=== PATIENT | male | born 1955 | race Caucasian/White ===

== ENCOUNTER 2018-03-14 12:36 | Observation (INO) | payer OTHER ==
[~2018-03-14] VITALS: Ht 167.6 cm; Wt 84.4 kg
[~2018-03-14 12:36] MED LIST: MOBIC15 M1 PO; SKELAXIN800 M1 PO
--- NOTE | 2018-03-14 12:41 | ED GENERAL ADULT ---
History of Present Illness General Chief Complaint: Neuro Symptoms/ Deficit Stated Complaint: BIBA L SIDED DEFICIT Source: patient Exam Limitations: no limitations Vital Signs & Intake/Output Vital Signs & Intake/Output Vital Signs Date Time Temp Pulse Resp B/P B/P Pulse O2 O2 Flow FiO2 Mean Ox Delivery Rate 03/14 1253 92 20 146/87 03/14 1236 Room Air Allergies Coded Allergies: No Known Allergies (03/14/18) Reconcile Medications Aspirin (Aspirin*) 81 MG TAB.CHEW 1 TAB PO DAILY HEART HEALTH (Reported) Carbamazepine (Tegretol) 200 MG TABLET 1 TAB PO BID SEIZURES (Reported) Eszopiclone (Lunesta) 3 MG TABLET 1 TAB PO QPM SLEEP HELP (Reported) Hydrocodone/Acetaminophen (Hydrocodon-Acetaminophn 10-300) 10 MG-300 MG TABLET 1 TAB PO Q6 PAIN (Reported) Lisinopril 20 MG TABLET 1 TAB PO DAILY HEART (Reported) Lorazepam (Ativan) 0.5 MG TABLET 1 TAB PO BID ANXIETY (Reported) Metformin HCl 500 MG TABLET 1 TAB PO BID DIABETES (Reported) Metoprolol Tartrate (Lopressor) 50 MG TABLET 0.5 TAB PO BID HEART (Reported) Omeprazole 20 MG CAPSULE.DR 1 CAP PO DAILY GI (Reported) Rosuvastatin Calcium (Crestor) 40 MG TABLET 1 TAB PO DAILY CHOLESTEROL ( Reported) Ticagrelor (Brilinta) 60 MG TABLET 1 TAB PO BID BLOOD THINNER (Reported) Triage Nurses Notes Reviewed? yes HPI: Patient is a 63-year-old male with past medical history of seizure disorder on carbamazepine without seizure episodes for the past multiple years who presents today by ambulance as a stroke alert. His noted loss of consciousness with seizure activity at 12 noon today and called 911. At the time of EMS arrival the patient was still having some residual seizure activity, which was self- limited. After it broke, he had left-sided hemiparesis. At the time of ED arrival the patient had improved significantly, with some continued expressive aphasia and confusion. The triage nurse alerted me to the patient's arrival simultaneous with him being brought to the CT scanner. I evaluated him in the scanner just prior to his exam and agreed with the plan for stroke alert, so it was called at that time. I received a call back from Dr. Roger who stated that he would come to the bedside immediately. Patient is protecting his airway well. Past History Travel History Traveled to [place] past 21 day No Medical History Any Pertinent Medical History? see below for history Cardiovascular: myocardial infarction, STENT Gastrointestinal: INGUINAL HERNIA Renal: NONE Musculoskeletal: "MULTIPLE HERNIATED DISKS Psychiatric: NONE Endocrine: diabetes Surgical History Surgical History: non-contributory Psychosocial History What is your primary language Faroese Family History Hx Contributory? Yes Review of Systems Review of Systems Constitutional: Reports: see HPI. Comments Other than the features mentioned in history of present illness above, a detailed review of systems was not possible secondary to the patient's confusion and expressive aphasia Physical Exam Physical Exam General Appearance: well developed/nourished, lethargic Comments: HEENT: Inspection of the head reveals a normocephalic cranium with no signs of trauma. Ophtho: Extraocular muscles are intact and pupils are equal and reactive to light bilaterally with no afferent pupillary defect. The sclera are noninjected , and there is no obvious discharge. Neck: The trachea is midline, there is no obvious asymmetry or mass over the thyroid, and there is no wincing on palpation of the midline cervical spine. Respiratory: The lungs are clear and equal to auscultation bilaterally without wheezes, rales, or rhonchi. The patient exhibits no signs of labored breathing. Cardiac: Regular rhythm and non-tachycardic without appreciable murmurs on auscultation. No obvious JVD. GI: Examination of the abdomen reveals no significant wincing on deep palpation. : Deferred Neuro: Focused neurologic examination was attempted, but secondary to the patient's altered mentation and expressive aphasia, it was extremely limited. Features that were obtainable included equal pupils and a slightly decreased left-sided block operator strength as compared to the right. Behavioral: Altered, somewhat confused. Dermatologic: Dermatologic examination reveals no diffuse rashes or exanthems, no petechiae, no ecchymoses, and no other signs of erythema or infection. Core Measures ACS in differential dx? No CVA/TIA Diagnosis: Yes Sepsis Present: No Sepsis Focused Exam Completed? No Progress Differential Diagnoses I considered the following diagnoses in my evaluation of the patient: CVA, TIA, seizure, cervical artery dissection, toxicologic cause of seizure, medication noncompliance, illness causing lowering of seizure threshold. Plan of Care: Orders Procedure Date/time Status Add-on Test (ER Only) 03/14 1259 Active TEGRETOL LEVEL 03/14 1252 Complete PARTIAL THROMBOPLASTIN TIME 03/14 1240 Complete PROTHROMBIN TIME 03/14 1240 Complete COMPREHENSIVE METABOLIC PANEL 03/14 124 Complete CBC WITHOUT DIFFERENTIAL 03/14 124 Complete EKG 03/14 1240 Active Laboratory Tests 03/14/18 1252: Anion Gap 18 H, Estimated GFR > 60, BUN/Creatinine Ratio 11.0, Glucose 97, Calcium 9.1, Total Bilirubin 0.2, AST 19, ALT 14 L, Alkaline Phosphatase 96, Total Protein 7.4, Albumin 4.3, Globulin 3.1, Albumin/Globulin Ratio 1.4, PT 10.6, INR 0.97, APTT 29, CBC w Diff NO MAN DIFF REQ, RBC 5.60, MCV 80.8, MCH 26.6 L, MCHC 33.0, RDW 17.5 H, MPV 6.4 L, Gran % 51.6, Lymphocytes % 37.6, Monocytes % 6.8, Eosinophils % 3.5, Basophils % 0.5, Absolute Granulocytes 4.0, Absolute Lymphocytes 2.9, Absolute Monocytes 0.5, Absolute Eosinophils 0.3, Absolute Basophils 0, Carbamazepine 9.1 Initial ED EKG: normal axis, normal intervals, NSR, RBBB, no ST T wave changes Comments: Patient presented as a stroke alert but rapidly returned to his neurologic baseline. Dr. Roger from neurology came to the bedside rapidly and by that time his neurologic examination was reassuring. CT was negative. The decision was made in consultation with Dr. Roger to hospitalize the patient for a possible TIA versus breakthrough seizure. Carbamazepine level sent. Departure Departure Time of Disposition: 1427 Disposition: STILL A PATIENT Condition: Stable Clinical Impression Primary Impression: Transient ischemic attack Referrals: Carrington WILEY,Biju Prakash (PCP/Family) Departure Forms: Customer Survey General Discharge Information Observation Note Spoke With: Giovani WILEY,[place] Physician Advisor Notified: LUPIS GONSALEZ DO Place Patient In: Non-ED OBS Care Area Rationale for Observation: My rational for observation is as follows: the patient had a significant neurologic deficit today which will require detailed monitoring, possibly MRI, frequent neurologic checks, repeat laboratory studies, and neurology consultation. I feel that if his syndrome continues to be reassuring and no symptoms return, it is likely that he will be deemed stable for discharge tomorrow and thus I feel that observation is appropriate over hospitalization. Critical Care Note Critical Care Note Critical Care Time: non-applicable
--- NOTE | 2018-03-14 12:58 | CT SCAN REPORT ---
EXAMINATION: CT HEAD WITHOUT CONTRAST CLINICAL INFORMATION: Stroke alert. Left-sided deficit. Onset 12pm today. COMPARISON: None TECHNIQUE: Contiguous axial imaging was performed from the skull base to vertex without intravenous administration of contrast. DLP: 617 mGy-cm FINDINGS: There is no evidence of acute intracranial hemorrhage or territorial infarction. No abnormal mass effect or midline shift is seen. Estevez to white matter differentiation is well preserved. No extra-axial fluid collections are identified. The ventricles are normal in size. Minor hypoattenuation in the periventricular white matter adjacent to the frontal horns, potentially on the basis of chronic microangiopathy. No acute osseous abnormality. There is moderate mucosal thickening in the ethmoid air cells bilaterally, and mild mucosal thickening in the anterior sphenoid air cells. There is partially visualized mucosal thickening along with sclerosis and thickening of the maxillary sinus galvin. There are scattered areas of nodularity within the nasal cavity suggesting small polyps which can be correlated with direct inspection. The visualized nasopharynx, mastoid air cells and middle ear cavities are clear. The imaged orbits are notable for bilateral ocular lens extractions. No acute soft tissue abnormalities are visualized. IMPRESSION: No acute intracranial pathology. Scattered inflammatory disease within the paranasal sinuses, partially visualized. Small nodularities within the nasal cavity suggesting polyps, which can be correlated with direct inspection. Our electrical accessories assembler is contacting the referring provider to directly convey these results per stroke protocol.
[2018-03-14 13:01] LABS: ABSOLUTE BASOPHIL COUNT 0 /CUMM (0.0-0.2); ABSOLUTE EOSINOPHIL COUNT 0.3 /CUMM (0.0-0.7); ABSOLUTE LYMPH COUNT 2.9 /CUMM (1.2-3.4); ABSOLUTE MONOCYTE COUNT 0.5 /CUMM (0.10-0.60); BASOPHIL % 0.5 % (0.0-2.0); EOSINOPHIL % 3.5 % (0-5); GRANULOCYTE % 51.6 % (42.2-75.2); HEMATOCRIT 45.2 % (42-52); MEAN CORPUSCULAR HGB 26.6 PG (27.0-31.0); MEAN CORPUSCULAR VOLUME 80.8 FL (80.0-94.0); MEAN PLATELET VOLUME 6.4 FL (7.4-10.4); PLATELET COUNT 254 /CUMM (130-400); RBC DISTRIBUTION WIDTH 17.5 % (11.5-14.5)
[2018-03-14 13:12] LABS: PTT 29 SEC (25-37)
[2018-03-14] MEDS ORDERED: ASPIRIN81 M4 PO (13:15)
[2018-03-14] MEDS ORDERED: CRESTOR40 M2 PO (13:15)
[2018-03-14] MEDS ORDERED: TEGRETOL200 M1 PO (13:15)
[2018-03-14] MEDS ORDERED: LISINOPRIL20 M1 PO (13:15)
[2018-03-14] MEDS ORDERED: METFORMIN HCL500 M3 PO (13:15)
[2018-03-14] MEDS ORDERED: ATIVAN0.5 M1 PO (13:16)
[2018-03-14] MEDS ORDERED: LOPRESSOR50 M1 PO (13:16)
[2018-03-14] MEDS ORDERED: HYDROCODON-ACE1 EAC4 PO (13:17)
[2018-03-14] MEDS ORDERED: BRILINTA60 MG PO (13:17)
[2018-03-14] MEDS ORDERED: LUNESTA3 M1 PO (13:18)
[2018-03-14] MEDS ORDERED: OMEPRAZOLE20 M2 PO (13:18)
[2018-03-14 13:24] LABS: WHITE BLOOD CELL COUNT 7.7 /CUMM (4.8-10.8)
--- NOTE | 2018-03-14 13:24 | Cons- Neurology ---
General Information and HPI Consulting Request Date of Consult: 03/14/18 Requested By: Dr. Garcia--ED History of Present Illness: 62-year-old male presents to the emergency department with a witnessed seizure. The patient has a history of coronary artery disease and a remote history of seizure, specifics quite unclear, last seizure likely occurring greater than 25 years ago. However, he has been maintained over time on carbamazepine 200 mg twice daily which she takes faithfully. Earlier this afternoon, in the presence of his son, he became acutely confused with some type of visual disturbance after which he had a generalized convulsion with shaking and stiffening of the extremities bilaterally. He was thereafter noted by emergency services to have a flaccid hemiparesis and aphasia. A stroke alert was called and the patient was rushed to CAT scan. The time he returned to the emergency department, his deficit had largely resolved. Due to his rapid improvement, TPA was not administered. There have been no recent fever, chills, rash or intercurrent medical condition. He currently has no essential complaints other than some fatigue. CAT scan of the brain on admission showed no acute abnormalities. No evidence of a chronic or focal scar. Allergies/Medications Allergies: Coded Allergies: No Known Allergies (03/14/18) Home Med List: Meloxicam (Mobic) 15 MG TABLET 1 TAB PO DAILY PRN PAIN Metaxalone (Skelaxin) 800 MG TABLET 1 TAB PO TID MUSCLE RELAXOR Review of Systems Review of Systems: Notable for some fatigue and chronic low back pain. There is been no recent fever, chills, rash, diplopia, dysphagia, vertigo, vomiting, gait ataxia, joint inflammation or abnormal bleeding Past History Travel History Traveled to [place] past 21 day No Medical History Cardiovascular: hyperlipidemia, myocardial infarction, STENT Gastrointestinal: INGUINAL HERNIA Renal: NONE Musculoskeletal: "MULTIPLE HERNIATED DISKS Psychiatric: NONE Endocrine: diabetes Surgical History Surgical History: non-contributory Psychosocial History Smoking Status: Current Everyday Smoker Exam & Diagnostic Data Vital Signs and I&O Vital Signs Date Time Temp Pulse Resp B/P B/P Pulse O2 O2 Flow FiO2 Mean Ox Delivery Rate 03/14 1253 92 20 146/87 Intake & Output 03/14 1600 03/14 0800 03/14 0000 Intake Total Output Total Balance Patient 180 lb Weight Weight Reported by Patient Measurement Method Pleasant middle-aged male in no acute distress. The head was normocephalic and atraumatic. He was awake, alert and cooperative. Speech was fluent. There was no anomia. He was able to repeat a simple sentence. Pupils were equal. Extraocular movements were full. There was no nystagmus. There was no facial weakness. Hearing was grossly normal. Tongue was midline. Motor examination showed no drift of the upper extremities. There was no focal or lateralizing weakness. Deep tendon reflexes are symmetric. Plantar responses were flexor. There was no ataxia on [id number] testing. Joint position sense was intact. The gait was untested. Assessment/Plan Assessment: The patient presents with a witnessed generalized convulsion associated with a transient neurological deficit, rapidly resolved. Although this may represent a breakthrough seizure or recrudescence of a prior seizure disorder, one would wish to rule out a seizure and transient neurological deficit secondary to an unrelated vascular event. An embolic TIA could present in this fashion. Recommendations: The patient should be admitted for observation. We will recommend the following. #1 carbamazepine level #2 carotid ultrasound #3 echocardiogram #4 EEG #5 Continuation of a statin and aspirin #6 lorazepam when necessary for recurrent seizure. We will follow with medical team. Consult Acknowledgment - Thank you for your consult request.
[2018-03-14 13:25] LABS: PT 10.6 SEC (9.4-12.5)
--- NOTE | 2018-03-14 14:51 | History & Physical ---
General Information and HPI Allergies/Medications Allergies: Coded Allergies: No Known Allergies (03/14/18) Home Med list Aspirin (Aspirin*) 81 MG TAB.CHEW 1 TAB PO DAILY HEART HEALTH (Reported) Carbamazepine (Tegretol) 200 MG TABLET 1 TAB PO BID SEIZURES (Reported) Eszopiclone (Lunesta) 3 MG TABLET 1 TAB PO QPM SLEEP HELP (Reported) Hydrocodone/Acetaminophen (Hydrocodon-Acetaminophn 10-300) 10 MG-300 MG TABLET 1 TAB PO Q6 PAIN (Reported) Lisinopril 20 MG TABLET 1 TAB PO DAILY HEART (Reported) Lorazepam (Ativan) 0.5 MG TABLET 1 TAB PO BID ANXIETY (Reported) Metformin HCl 500 MG TABLET 1 TAB PO BID DIABETES (Reported) Metoprolol Tartrate (Lopressor) 50 MG TABLET 0.5 TAB PO BID HEART (Reported) Omeprazole 20 MG CAPSULE.DR 1 CAP PO DAILY GI (Reported) Rosuvastatin Calcium (Crestor) 40 MG TABLET 1 TAB PO DAILY CHOLESTEROL ( Reported) Ticagrelor (Brilinta) 60 MG TABLET 1 TAB PO BID BLOOD THINNER (Reported) Past History Travel History Traveled to [place] past 21 day No Medical History Cardiovascular: hyperlipidemia, myocardial infarction, STENT Gastrointestinal: INGUINAL HERNIA Renal: NONE Musculoskeletal: "MULTIPLE HERNIATED DISKS Psychiatric: NONE Endocrine: diabetes Surgical History Surgical History: non-contributory Past Family/Social History Psychosocial History Smoking Status: Current Everyday Smoker Core Measures/Misc (03/27) Cerebrovascular Accident CVA/TIA Diagnosis: Yes Sepsis (View protocol) If YES complete Sepsis Event Note If YES complete Sepsis Event Note
--- NOTE | 2018-03-14 15:30 | History & Physical ---
General Information and HPI MD Statement: I have seen and personally examined SIMBA BRENNAN and documented this H&P. The patient is a 63 year old M who presented with a patient stated chief complaint of []. Allergies/Medications Allergies: Coded Allergies: No Known Allergies (03/14/18) Home Med list Aspirin (Aspirin*) 81 MG TAB.CHEW 1 TAB PO DAILY HEART HEALTH (Reported) Carbamazepine (Tegretol) 200 MG TABLET 1 TAB PO BID SEIZURES (Reported) Eszopiclone (Lunesta) 3 MG TABLET 1 TAB PO QPM SLEEP HELP (Reported) Hydrocodone/Acetaminophen (Hydrocodon-Acetaminophn 10-300) 10 MG-300 MG TABLET 1 TAB PO Q6 PAIN (Reported) Lisinopril 20 MG TABLET 1 TAB PO DAILY HEART (Reported) Lorazepam (Ativan) 0.5 MG TABLET 1 TAB PO BID ANXIETY (Reported) Metformin HCl 500 MG TABLET 1 TAB PO BID DIABETES (Reported) Metoprolol Tartrate (Lopressor) 50 MG TABLET 0.5 TAB PO BID HEART (Reported) Omeprazole 20 MG CAPSULE.DR 1 CAP PO DAILY GI (Reported) Rosuvastatin Calcium (Crestor) 40 MG TABLET 1 TAB PO DAILY CHOLESTEROL ( Reported) Ticagrelor (Brilinta) 60 MG TABLET 1 TAB PO BID BLOOD THINNER (Reported) Past History Travel History Traveled to [place] past 21 day No Medical History Cardiovascular: hyperlipidemia, myocardial infarction, STENT Gastrointestinal: INGUINAL HERNIA Renal: NONE Musculoskeletal: "MULTIPLE HERNIATED DISKS Psychiatric: NONE Endocrine: diabetes Surgical History Surgical History: non-contributory Past Family/Social History Psychosocial History Smoking Status: Current Everyday Smoker Core Measures/Misc (03/27) Cerebrovascular Accident CVA/TIA Diagnosis: Yes Sepsis (View protocol) If YES complete Sepsis Event Note If YES complete Sepsis Event Note
--- NOTE | 2018-03-14 16:13 | History & Physical ---
Charito Nobles 03/14/18 1612: General Information and HPI History of Present Illness: Tucker Estes is a 63-year-old gentleman with a past medical history of chronic back pain, coronary artery disease status post stent placed 2 years ago, hypertension, hyperlipidemia, seizure, GERD who presented to the ED due to one episode of witnessed seizures at home by his son. Patient states he does not remember the event. Patient states he was sitting on the couch and started to visualize "different colors" and then from there has no recollection of the event. Patient's son was present during the seizure activity and states his father began to move his head side to side rapidly and his extremities bilateral became stiff. Patient did not have any reported falls. Patient states he felt possibly dehydrated today due to the high temperatures recently. Patient otherwise denied any urinary incontinence, dizziness, lightheadedness, chest pain, palpitations, headache, fevers, chills, and fatigue. Patient denies illicit drug usage. Patient states he smokes 1/2 ppd for more than [address] Shultz (PCP). Patient [facility] with [facility]. Patient states he incidentally that he takes medication for sleep, however he has tried Ambien prior but states it did not have the intended effect and did not benefit him for sleep. Allergies/Medications Allergies: Coded Allergies: No Known Allergies (03/14/18) Home Med list Aspirin (Aspirin*) 81 MG TAB.CHEW 1 TAB PO DAILY HEART HEALTH (Reported) Carbamazepine (Tegretol) 200 MG TABLET 1 TAB PO BID SEIZURES (Reported) Eszopiclone (Lunesta) 3 MG TABLET 1 TAB PO QPM SLEEP HELP (Reported) Hydrocodone/Acetaminophen (Hydrocodon-Acetaminophn 10-300) 10 MG-300 MG TABLET 1 TAB PO Q6 PAIN (Reported) Lisinopril 20 MG TABLET 1 TAB PO DAILY HEART (Reported) Lorazepam (Ativan) 0.5 MG TABLET 1 TAB PO BID ANXIETY (Reported) Metformin HCl 500 MG TABLET 1 TAB PO BID DIABETES (Reported) Metoprolol Tartrate (Lopressor) 50 MG TABLET 0.5 TAB PO BID HEART (Reported) Omeprazole 20 MG CAPSULE.DR 1 CAP PO DAILY GI (Reported) Rosuvastatin Calcium (Crestor) 40 MG TABLET 1 TAB PO DAILY CHOLESTEROL ( Reported) Ticagrelor (Brilinta) 60 MG TABLET 1 TAB PO BID BLOOD THINNER (Reported) Past History Medical History Cardiovascular: hyperlipidemia, myocardial infarction, STENT Gastrointestinal: INGUINAL HERNIA Renal: NONE Musculoskeletal: "MULTIPLE HERNIATED DISKS Psychiatric: NONE Endocrine: diabetes Surgical History Surgical History: non-contributory Past Family/Social History Psychosocial History Smoking Status: Current Everyday Smoker Review of Systems Review of Systems Constitutional: Denies: chills, diaphoresis, fever, malaise. Cardiovascular: Denies: chest pain, edema, orthopena, palpitations. Respiratory: Denies: cough, short of breath. GI: Denies: diarrhea, bowel incontinence, nausea, vomiting. Musculoskeletal: Denies: back pain, joint pain. Skin: Denies: no symptoms. Neurological/Psychological: Denies: ataxia, confusion, headache, numbness, tingling, tremors. Exam & Diagnostic Data Last 24 Hrs of Vital Signs/I&O Vital Signs Date Time Temp Pulse Resp B/P B/P Pulse O2 O2 Flow FiO2 Mean Ox Delivery Rate 03/14 1718 98.0 75 14 142/78 96 Room Air 03/14 1630 97.6 84 18 126/73 96 Room Air 03/14 1541 Room Air 03/14 1441 98.4 71 18 124/77 99 Room Air 03/14 1253 98.6 92 20 146/87 98 Room Air 03/14 1236 Room Air Intake & Output 03/14 1600 03/14 0800 03/14 0000 Intake Total Output Total Balance Patient 180 lb Weight Weight Reported by Patient Measurement Method Physical Exam General Appearance Alert, Oriented X3, Cooperative, No Acute Distress Skin No Rashes, No Breakdown Skin Temp/Moisture Exam: Warm/Dry HEENT Atraumatic Neck Supple, No JVD Lymphatic Cervical nl Cardiovascular Regular Rate, Normal S1, Normal S2 Lungs Clear to Auscultation Neurological Normal Speech, Strength at 5/5 X4 Ext, Normal Tone, Sensation Intact Extremities No Edema, Normal Pulses Assessment/Plan Assessment: Head CT - No acute intracranial pathology. Scattered inflammatory disease within the paranasal sinuses, partially visualized. Small nodularities within the nasal cavity suggesting polyps, which can be correlated with direct inspection. 63-year-old gentleman with a past medical history of chronic back pain, coronary artery disease status post stent placed 2 years ago, hypertension, hyperlipidemia, seizure, GERD who presented to the ED due to one episode of witnessed seizures at home by his son. Etiology in this case with a presentation of witnessed seizure in a patient with history of seizure disorder currently taking Carbamazepine twice daily is likely related to a recurrent of patient's seizure disorder. Differential diagnosis also includes TIA/Stroke, convulsive syncope, cardiac arrhythmia, and narcolepsy. Problem List: -Generalized Tonic-clonic seizure -Hx. of Diabetes mellitus -Hx. of Coronary artery disease #Generalized Tonic-clonic seizure, witnessed by family and hx. of seizure disorder -Admitted in telemetry for monitoring and observation of vitals -Vitals every shift -Frequent neuro checks q4 -Carbamazepine level obtained; level at 9.1 (nl); restarted carbamazepine -EEG, follow up -Consider a different antiseizure medication class. -Patient appeared mildly dehydrated, ordered IV fluids; however, patient is having adequate PO oral intake and patient did not want IV fluids currently so discontinued fluids as of now -Carotid ultrasound and echocardiogram to rule out any embolic stroke. -Continue aspirin, statin and rest of his home medication. #Diabetes -Sliding scale insulin -Will confirm with pharmacy about his new antidiabetic medication. #Coronary artery disease -Patient is on aspirin and Brilinta -We will confirm with this food chemist regarding continuing Brilinta; called [facility] Diet - Consistent carbohydrate diet DVT PPx. - Lovenox CODE STATUS - full code As Ranked By This Provider Problem List: 1. Seizure disorder Core Measures/Misc (03/27) Acute Coronary Syndrome ACS Diagnosis: No Congestive Heart Failure Congestive Heart Failure Diagnosis No Cerebrovascular Accident CVA/TIA Diagnosis: No VTE (View Protocol) VTE Risk Factors Acute Medical Illness No Mechanical VTE Prophylaxis d/t N/A MechProphylax Ordered No VTE Pharm Prophylaxis d/t NA PharmProphylax ordered Sepsis (View protocol) Sepsis Present: No If YES complete Sepsis Event Note If YES complete Sepsis Event Note Rodri WILEY,Karie 03/14/18 1631: Core Measures/Misc (03/27) Sepsis (View protocol) If YES complete Sepsis Event Note If YES complete Sepsis Event Note Resident Review Statement Other Findings: 63-year-old gentleman with past medical history of chronic back pain, coronary artery disease status post stent placed 2 years ago, hypertension, hyperlipidemia, seizure, GERD came to [facility] with 1 episode of witnessed seizures at home. Apparently patient was in usual state of health until today morning. Patient went out for grocery shopping along with his son and came back home. He was sitting in his couch and fell flashing of lights in front of his thighs and during the same time when he was conversing with his son he started having generalized tonic-clonic seizures with drooling of saliva and up rolling of his eyes. He denied any urinary incontinence, tongue bite, olfactory hallucination, headache, numbness, recent illness, recent new medication, weakness, dizziness, chest pain, nausea, vomiting, abdominal pain, shortness of breath, trauma. Patient [facility] [place] Dr. Marcus mercedes whom he saw 6 months ago. Patient is not sure why he is on Brilinta. Patient also endorses that he was started on a new medication for his diabetes. Past surgical history-lumbar spine fusion, hernia repair Social history-smokes half a pack a day since age of 13 years on and off, nonalcoholic and no illicit drug use. Lives with his son. Allergies-Ambien Admission vitals Temperature 97.6, pulse rate 84, respiratory rate 18, blood pressure 136/73, saturating 96 at room air. Admission labs WBC 7.7, hemoglobin 14.9, platelet count 254, sodium 141, carbon dioxide 15, anion gap of 18, prolactin pending, carbamazepine 9.[address] No acute intracranial pathology. Scattered inflammatory disease within the paranasal sinuses, partially visualized. Small nodularities within the nasal cavity suggesting polyps, which can be correlated with direct inspection. Our coating manager is contacting the referring provider to directly convey these results per stroke protocol. Assessment and plan differential diagnosis 1. Generalized tonic-clonic seizure 2. Rule out TIA 3. Diabetes mellitus 4. Coronary artery disease * observation in telemetry. Vitals every shift * Frequent neuro checks * Given the patient history of witnessed generalized tonic-clonic seizure and his past history medical history of seizures 25 years ago-his episode today looks more likely due to seizures. Interestingly patient took us carbamazepine dose today morning. At this carmustine level is normal. We will take an EEG and need to consider a different antiseizure medication class. Patient appears mildly dehydrated we will give him IV fluids. Ativan as needed for seizures. hold carbamazepine. * TIA-given the patient's rapid improvement of the symptoms there is a possibility for TIA. We will do carotid ultrasound and echocardiogram to rule out any embolic stroke. * we will continue aspirin, statin and rest of his home medication. * Diabetes-sliding scale insulin. Will confirm with pharmacy about his new antidiabetic medication. * Coronary artery disease-patient is on aspirin and Brilinta we will confirm with this food chemist regarding continuing Brilinta. * Diet-consistent carbohydrate diet * Lovenox * CODE STATUS full code Giovani WILEY,Nunu 03/15/18 1235: Core Measures/Misc (03/27) Sepsis (View protocol) If YES complete Sepsis Event Note If YES complete Sepsis Event Note Attending MD Review Statement Attending Statement Attending MD Statement: examined this patient, discuss w/resident/PA/OPERATIONS PLANT ATTENDANT, agreed w/resident/PA/OPERATIONS PLANT ATTENDANT, reviewed EMR data (avail) Attending Assessment/Plan: 63M PMH chronic back pain, CAD s/p PCI 2 years, HTN, HLD, seizure, GERD presenting with a seizure like episode. Patient has a seizure disorder but has not had one in 20 years and is compliant with Tegretol. Earlier today he had been in his usual state of health, had gone out shopping with his son. It was unusually hot and humid today, and when he got back home he felt overheated, stripped off his clothes, and sat on the couch. Shortly thereafter, his son heard him say some nonsensical things, and witnessed the patient having tremulous movements, with rigidity of the right arm and leg. Son called 911, EMS came and gave him medication through the IV, and his symptoms resolved. The patient has no memory of any of this. He feels well and has no complaints. Per son, the patient is at baseline mental status. Cranial nerves, sensory, motor, cerebellar exams are all normal. CT head negative. 1. Seizure Plan - Observation in telemetry - Continue Tegretol and obtain level - EEG - Neurology consult - Continue home medications - DVT PPx
[2018-03-14 17:18] VITALS: BP 142/78
--- NOTE | 2018-03-14 21:34 | ULTRASOUND REPORT ---
EXAMINATION: US DUPLEX BILATERAL CAROTID CLINICAL INFORMATION: Seizure. TIA.. COMPARISON: No similar prior examinations available for comparison. TECHNIQUE: Real-time ultrasound and Doppler techniques (integrating B-mode 2D vascular images, Doppler spectral analysis and color flow Doppler imaging) were utilized to interrogate the extracranial carotid and vertebral arteries bilaterally. The degree of stenosis determined by criteria similar to NASCET. FINDINGS: Right side: 1. Mild amount of heterogeneous plaque is seen in the ECA/ICA region. 2. The common carotid artery velocity is 102 cm/s. 3. The internal carotid artery velocities are 89 cm/s systolic and 27 cm/s diastolic. 4. The external carotid artery velocity is 109 cm/s. Left side: 1. Mild amount of heterogeneous plaque is seen in the ECA/ICA region. 2. The common carotid artery velocity is 83 cm/s. 3. The internal carotid artery velocities are 86 cm/s systolic and 22 cm/s diastolic. 4. The external carotid artery velocity is 140 cm/s. ADDITIONAL FINDINGS: The vertebral arteries show antegrade flow. IMPRESSION: 1. RIGHT: Minimal, nonhemodynamically significant stenosis of the proximal right internal carotid artery corresponding to a 0-49% stenosis by velocity criteria. 2. LEFT: Minimal, nonhemodynamically significant stenosis of the proximal left internal carotid artery corresponding to a 0-49% stenosis by velocity criteria. 3. No evidence for hemodynamically significant stenosis in the external carotid arteries.
[2018-03-14 22:09] VITALS: BP 110/70
--- NOTE | 2018-03-15 07:11 | ECHOCARDIOGRAM REPORT ---
SIMBA BRENNAN Age: 63 : 1955 Gender: M Exam Date: 03/14/2018 19:15 Exam Location: 1 [address] Ht (in): 66 Wt (lb): 180 BSA: 1.97 BP: 126 / 73 Ordering Physician: Karie Maec MD Referring Physician: Karie Mace MD Technologist: Danielle Reynoso [facility] Room Number: [id number] Indications: Chest pain Rhythm: Sinus Technical Quality: good FINDINGS Left Ventricle Normal left ventricular size with mild left ventricular hypertrophy. Normal systolic function with no obvious regional wall motion abnormalities. Normal left ventricular diastolic filling pattern for age. The ejection fraction is visually estimated at 65%. Right Ventricle The right ventricle is normal in size and function. Right Atrium The right atrium is normal in size. Left Atrium The left atrium is normal in size. The interatrial septum is intact. Mitral Valve The mitral valve is normal in structure and function. There is no mitral regurgitation. Aortic Valve Mildly thickened aortic valve without significant sclerosis or stenosis. There is no aortic regurgitation. Tricuspid Valve The tricuspid valve is normal in structure and function. There is trace tricuspid regurgitation. Pulmonary artery systolic pressure is normal. Pulmonic Valve Structurally normal pulmonic valve. There is no pulmonic regurgitation. Pericardium Normal pericardium without effusion. No pleural effusion. Great Vessels Normal aortic root dimension. The aortic arch and great vessels are well seen and are normal. CONCLUSIONS 1. Normal EF of 65%. 2. Mild left ventricular hypertrophy. 3. Trace tricuspid regurgitation. Perry Ramirez M.D. (Electronically Signed) Final Date: 15 March 2018 07:10 MEASUREMENTS (Male / Female) Normal Values 2D ECHO LV Diastolic Diameter PLAX 4.0 cm 4.2 - 5.9 / 3.9 - 5.3 cm LV Systolic Diameter PLAX 2.5 cm 2.1 - 4.0 cm LV Fractional Shortening PLAX 37.5 % 25 - 46 % LV Ejection Fraction 2D Teich 68.1 % IVS Diastolic Thickness 1.4 cm LVPW Diastolic Thickness 1.3 cm LV Relative Wall Thickness 0.7 RV Internal Dim ED PLAX 3.2 cm 1.9 - 3.8 cm LVOT Diameter 2.2 cm Aortic Root Diameter 3.3 cm LA Systolic Diameter LX 3.2 cm 3.0 - 4.0 / 2.7 - 3.8 cm LA Volume 35.0 cm 18 - 58 / 22 - 52 cm Ascending Aorta Diameter 3.3 cm DOPPLER AV Peak Velocity 153.0 cm/s AV Peak Gradient 9.4 mmHg AV Mean Velocity 105.0 cm/s AV Mean Gradient 5.0 mmHg AV Velocity Time Integral 29.4 cm LVOT Peak Velocity 121.0 cm/s LVOT Peak Gradient 5.9 mmHg LVOT Mean Velocity 78.7 cm/s LVOT Mean Gradient 3.0 mmHg LVOT Velocity Time Integral 22.2 cm LVOT Stroke Volume 84.4 cm AV Area Cont Eq vti 2.9 cm AV Area Cont Eq pk 3.0 cm MV Peak Velocity 111.0 cm/s MV Peak Gradient 4.9 mmHg MV Mean Velocity 52.5 cm/s MV Mean Gradient 1.0 mmHg Mitral E Point Velocity 84.4 cm/s Mitral A Point Velocity 89.3 cm/s Mitral E to A Ratio 0.9 MV PHT Velocity 97.3 cm/s MV Deceleration [place] 293.0 cm/s MV Pressure Half Time 99.6 ms MV Area PHT 2.2 cm MV Deceleration Time 299.0 ms TR Peak Velocity 93.0 cm/s TR Peak Gradient 3.5 mmHg Right Atrial Pressure 5.0 mmHg Pulmonary Artery Systolic Pressure 8.5 mmHg Right Ventricular Systolic Pressure 8.5 mmHg PV Peak Velocity 124.0 cm/s PV Peak Gradient 6.2 mmHg PV Mean Velocity 78.2 cm/s PV Mean Gradient 3.0 mmHg PV Velocity Time Integral 20.9 cm LV E' Lateral Velocity 7.1 cm/s Mitral E to LV E' Lateral Ratio 11.9 LV E' Septal Velocity 7.4 cm/s Mitral E to LV E' Septal Ratio 11.4
[2018-03-15 07:22] VITALS: BP 122/72
--- NOTE | 2018-03-15 07:46 | PN- Housestaff ---
Charito Nobles 03/15/18 0745: Subjective Follow-up For: Seizure disorder Subjective: Afebrile overnight. Patient is seen and examined in bed this morning. Patient had no complaints overnight and states he feels better today. Patient however states he has a mild headache in the occipital region, which he attributes to present usually when he has allergies. Patient otherwise had no new concerns today. Review of Systems Constitutional: Reports: see HPI. Objective Last 24 Hrs of Vital Signs/I&O Vital Signs Date Time Temp Pulse Resp B/P B/P Pulse O2 O2 Flow FiO2 Mean Ox Delivery Rate 03/15 0722 97.8 66 20 122/72 96 Room Air 03/14 2209 97.5 52 20 110/70 97 Room Air 03/14 1718 98.0 75 14 142/78 96 Room Air 03/14 1630 97.6 84 18 126/73 96 Room Air 03/14 1541 Room Air 03/14 1441 98.4 71 18 124/77 99 Room Air 03/14 1253 98.6 92 20 146/87 98 Room Air 03/14 1236 Room Air Intake & Output 03/15 1600 03/15 0800 09 0000 Intake Total 200 730 Output Total 0 Balance 200 730 Intake, IV 100 Intake, Oral 200 630 Output, Urine 0 Patient 192 lb Weight Physical Exam General Appearance: Alert, Oriented X3, Cooperative, No Acute Distress Skin: No Rashes, No Breakdown HEENT: Atraumatic Neck: Supple, No JVD Cardiovascular: Regular Rate, Normal S1, Normal S2 Lungs: Clear to Auscultation Neurological: Normal Speech Extremities: No Edema, Normal Pulses Assessment/Plan Assessment: ECHO - Normal left ventricular size with mild left ventricular hypertrophy. Normal systolic function with no obvious regional wall motion abnormalities. Normal left ventricular diastolic filling pattern for age. The ejection fraction is visually estimated at 65%. Carotid US - 1. RIGHT: Minimal, nonhemodynamically significant stenosis of the proximal right internal carotid artery corresponding to a 0-49% stenosis by velocity criteria. 2. LEFT: Minimal, nonhemodynamically significant stenosis of the proximal left internal carotid artery corresponding to a 0-49% stenosis by velocity criteria. 3. No evidence for hemodynamically significant stenosis in the external carotid arteries. Head CT - No acute intracranial pathology. Scattered inflammatory disease within the paranasal sinuses, partially visualized. Small nodularities within the nasal cavity suggesting polyps, which can be correlated with direct inspection. 63-year-old gentleman with a past medical history of chronic back pain, coronary artery disease status post stent placed 2 years ago, hypertension, hyperlipidemia, seizure, GERD who presented to the ED due to one episode of witnessed seizures at home by his son. Etiology in this case with a presentation of witnessed seizure in a patient with history of seizure disorder currently taking Carbamazepine twice daily is likely related to a recurrent of patient's seizure disorder. Differential diagnosis also includes TIA/Stroke, convulsive syncope, cardiac arrhythmia, and narcolepsy. Problem List: -Generalized Tonic-clonic seizure -Hx. of Diabetes mellitus -Hx. of Coronary artery disease #Generalized Tonic-clonic seizure, witnessed by family and hx. of seizure disorder -Patient is in observation currently for monitoring and management of his vitals -Vitals every shift -Frequent neuro checks q4 -Carbamazepine level obtained; level at 9.1 (nl); restarted carbamazepine -EEG, follow up -Consider a different antiseizure medication class; neuro consulted and recommend to continue with current regimen as patient has been well controlled prison prior to current episode -Patient appeared mildly dehydrated, ordered IV fluids; however, patient is having adequate PO oral intake and patient did not want IV fluids currently so discontinued fluids as of now -Carotid ultrasound and echocardiogram to rule out any embolic stroke. -Continue aspirin, statin and rest of his home medication. #Diabetes -Sliding scale insulin #Coronary artery disease -Patient is on aspirin and Brilinta -We will confirm with this plant scientist regarding continuing Brilinta; called [facility] office and confirmed patient has had multiple stents, 10 total, over the past several years the last being in 2014; will continue Brilinta currrently as of now Diet - Consistent carbohydrate diet DVT PPx. - Lovenox CODE STATUS - full code Problem List: 1. Seizure disorder Pain Ratin Pain Location: na Pain Goal: Remain pain free Pain Plan: prn meds Tomorrow's Labs & Rationales: routine Nunu Matute MD 03/15/18 1250: Attending MD Review Statement Attending Statement Attending MD Statement: examined this patient, discuss w/resident/PA/INTERLACER, agreed w/resident/PA/INTERLACER, reviewed EMR data (avail) Attending Assessment/Plan: 63M PMH chronic back pain, CAD s/p PCI 2 years, HTN, HLD, seizure, GERD presenting with a seizure like episode. Patient has a seizure disorder but has not had one in 20 years and is compliant with Tegretol. Earlier today he had been in his usual state of health, had gone out shopping with his son. It was unusually hot and humid today, and when he got back home he felt overheated, stripped off his clothes, and sat on the couch. Shortly thereafter, his son heard him say some nonsensical things, and witnessed the patient having tremulous movements, with rigidity of the right arm and leg. Son called 911, EMS came and gave him medication through the IV, and his symptoms resolved. The patient has no memory of any of this. He feels well and has no complaints. Per son, the patient is at baseline mental status. Cranial nerves, sensory, motor, cerebellar exams are all normal. CT head negative. 1. Seizure Plan - Observation in telemetry - Continue Tegretol and obtain level - EEG - Neurology consult - Continue home medications - DVT PPx
--- NOTE | 2018-03-15 09:55 | Patient Discharge Instructions ---
Discharge Instructions General Discharge Information You were seen/treated for: Seizure disorder You had these procedures: Carotid Ultrasound ECHO Watch for these problems: If you experience any worsening weakness, headaches, dizziness, and/or seizure please follow up with your PCP. Special Instructions: Please follow up with your PCP within one week. Please follow up with PCP for EEG report. Please follow up with your caretaker grounds within 2 weeks. Please follow up with a neurologist within 2 weeks as outpatient. Please continue to take your home medications. Diet Continue normal diet: Yes Recommended Diet: Regular Activity Full Activity/No Limits: No Activity Self Limited: Yes Acute Coronary Syndrome Inclusion Criteria At DC or during hospital stay patient has or had the following: ACS DIAGNOSIS No Discharge Core Measures Meds if any: Prescribed or Continued at Discharge Meds if any: NOT Prescribed or Continued at Discharge Congestive Heart Failure Inclusion Criteria At DC or during hospital stay patient has or had the following: CHF DIAGNOSIS No Discharge Core Measures Meds if any: Prescribed or Continued at Discharge Meds if any: NOT Prescribed or Continued at Discharge Cerebrovascular accident Inclusion Criteria At DC or during hospital stay patient has or had the following: CVA/TIA Diagnosis No Discharge Core Measures Meds if any: Prescribed or Continued at Discharge Meds if any: NOT Prescribed or Continued at Discharge Venous thromboembolism Inclusion Criteria VTE Diagnosis No VTE Type NONE VTE Confirmed by (Test) NONE Discharge Core Measures - Per Current guidelines, there needs to be overlap - treatment for the first 5 days of Warfarin therapy. - If discharged on Warfarin prior to 5 days of - overlap therapy, the patient will need to be - assessed for post discharge needs including - *Post discharge parental anticoagulation - *Warfarin and/or parental anticoagulation education - *Follow up date to check INR post discharge At least 5 days overlap therapy as Inpatient No Meds if any: Prescribed or Continued at Discharge Note: Overlap Therapy is Warfarin and Anticoagulant Meds if any: NOT Prescribed or Continued at Discharge
--- NOTE | 2018-03-15 10:04 | Discharge Summary ---
Visit Information Visit Dates Admission Date: 03/14/18 Hospital Course Course Attending Physician: Nunu Matuet MD Primary Care Physician: Carrington WILEY,Biju Prakash Hospital Course: 63-year-old gentleman with a past medical history of chronic back pain, coronary artery disease status post stent placed 2 years ago, hypertension, hyperlipidemia, seizure, GERD who presented to the ED due to one episode of witnessed seizures at home by his son. Etiology in this case with a presentation of witnessed seizure in a patient with history of seizure disorder currently taking Carbamazepine twice daily is likely related to a recurrent of patient's seizure disorder. Differential diagnosis also included TIA/Stroke, convulsive syncope, cardiac arrhythmia, and narcolepsy. Problem List: -Generalized Tonic-clonic seizure -Hx. of Diabetes mellitus -Hx. of Coronary artery disease 1. Generalized Tonic-clonic seizure, witnessed by family and hx. of seizure disorder -Patient was in observation currently for monitoring and management of his vitals -We performed frequent neuro checks q4 -Carbamazepine level obtained; level at 9.1 (nl); restarted carbamazepine -EEG, follow up and neurology consulted for patient who recommended to utilize lorazepm when necessary for recurrent seizure however patient did not require any lorazepam medication prn -We considered a different antiseizure medication class but patient would like to continue with carbamazepine due to being familiar with the medication and possibly at a higher dosage -Patient appeared mildly dehydrated, ordered IV fluids; however, patient is having adequate PO oral intake and patient did not want IV fluids currently so discontinued fluids as of now -Carotid ultrasound and echocardiogram to rule out any embolic stroke; carotid ultrasound showed no acute findings and ECHO visualized EF of 65% 2. Diabetes -Sliding scale insulin 3. Coronary artery disease -Patient is on aspirin and Brilinta Allergies: Coded Allergies: No Known Allergies (03/14/18) Significant Procedures: ECHO - Normal left ventricular size with mild left ventricular hypertrophy. Normal systolic function with no obvious regional wall motion abnormalities. Normal left ventricular diastolic filling pattern for age. The ejection fraction is visually estimated at 65%. Carotid US - 1. RIGHT: Minimal, nonhemodynamically significant stenosis of the proximal right internal carotid artery corresponding to a 0-49% stenosis by velocity criteria. 2. LEFT: Minimal, nonhemodynamically significant stenosis of the proximal left internal carotid artery corresponding to a 0-49% stenosis by velocity criteria. 3. No evidence for hemodynamically significant stenosis in the external carotid arteries. Head CT - No acute intracranial pathology. Scattered inflammatory disease within the paranasal sinuses, partially visualized. Small nodularities within the nasal cavity suggesting polyps, which can be correlated with direct inspection. Disposition Summary Disposition Principal Diagnosis: Seizure disorder Additional Diagnosis: Hx. of CAD with multiple stents Hx. of HTN Hx. of HLD Discharge Disposition: home or self care Discharge Instructions General Discharge Information Code Status: Full Code Patient's Diet: regular Patient's Activity: ad georgette Follow-Up Instructions/Appts: Please follow up with your PCP within one week. Please follow up with your mechanical systems design engineer within 2 weeks. Please follow up with a neurologist as outpatient. Please continue to take your home medications. Medications at Discharge Discharge Medications: Continue taking these medications: Metformin HCl (Metformin HCl) 500 MG TABLET 1 Tablet ORAL TWICE DAILY Aspirin (Aspirin*) 81 MG TAB.CHEW 1 Tablet ORAL DAILY Rosuvastatin Calcium (Crestor) 40 MG TABLET 1 Tablet ORAL DAILY Lisinopril (Lisinopril) 20 MG TABLET 1 Tablet ORAL DAILY Lorazepam (Ativan) 0.5 MG TABLET 1 Tablet ORAL TWICE DAILY Metoprolol Tartrate (Lopressor) 50 MG TABLET 0.5 Tablet ORAL TWICE DAILY Hydrocodone/Acetaminophen (Hydrocodon-Acetaminophn 10-300) 10 MG-300 MG TABLET 1 Tablet ORAL EVERY SIX HOURS Ticagrelor (Brilinta) 60 MG TABLET 1 Tablet ORAL TWICE DAILY Omeprazole (Omeprazole) 20 MG CAPSULE.DR 1 Capsule ORAL DAILY Eszopiclone (Lunesta) 3 MG TABLET 1 Tablet ORAL Every night Copies To: Carrington WILEY,Biju Prakash Attending MD Review Statement Documenting Attending: Nunu Matute MD
--- NOTE | 2018-03-15 12:50 | PN- Neurology ---
Subjective Subjective: Feeling well. Subjectively back to baseline. No further events overnight. Objective Vital Signs and I&Os Vital Signs Date Time Temp Pulse Resp B/P B/P Pulse O2 O2 Flow FiO2 Mean Ox Delivery Rate 03/15 0842 66 122/72 03/15 0842 66 122/72 03/15 0722 97.8 66 20 122/72 96 Room Air 03/14 2209 97.5 52 20 110/70 97 Room Air 03/14 1718 98.0 75 14 142/78 96 Room Air 03/14 1630 97.6 84 18 126/73 96 Room Air 03/14 1541 Room Air 03/14 1441 98.4 71 18 124/77 99 Room Air 03/14 1253 98.6 92 20 146/87 98 Room Air Intake & Output 03/15 1600 03/15 0800 03/15 0000 03/14 1600 03/14 0800 03/14 0000 Intake Total 200 730 Output Total 0 Balance 200 730 Intake, IV 100 Intake, Oral 200 630 Output, Urine 0 Patient 192 lb 180 lb Weight Weight Reported by Patient Measurement Method Patient is awake and alert. Speech fluent. Higher cortical function is intact. The face is symmetric. There is no evidence of focal or lateralizing weakness. Carotid ultrasound showed no hemodynamically significant stenoses. Echocardiogram showed no suggestion of thrombus formation. Carbamazepine level was therapeutic at 9.1. Current Medications: Current Medications Sig/Bandar Start time Last Medication Dose Route Stop Time Status Admin Acetaminophen 650 MG Q6P PRN 03/14 1700 AC 03/15 PO 0000 Acetaminophen 1,000 MG Q6P PRN 03/14 1700 AC 03/14 IV 1955 Acetaminophen 650 MG ONCE ONE 03/14 1445 DC 03/14 PO 03/14 1446 1442 Acetaminophen 0 .STK-MED ONE 03/14 1440 DC PO Acetaminophen/ 1 TAB Q4P PRN 03/15 0845 AC 03/15 Butalbital/Caffeine PO 0942 Aspirin 0 .STK-MED ONE 03/14 1630 DC PO Aspirin 81 MG DAILY 03/14 1554 AC 03/15 PO 0841 Atorvastatin Calcium 40 MG 1700 03/14 1700 AC 03/14 PO 1635 Carbamazepine 200 MG BID 03/14 2100 CAN PO Carbamazepine 200 MG BID 03/14 2100 AC 03/15 PO 0842 Dextrose 25 GM ONCE ONE 03/14 1530 DC IV 03/14 1531 Insulin Aspart 0 TIDAC 03/15 0800 AC SC Lisinopril 20 MG DAILY 03/15 0900 AC 03/15 PO 0842 Lorazepam 0.5 MG BID 03/14 2100 AC 03/15 PO 03/21 2059 0841 Melatonin 5 MG AT BEDTIME 03/14 2100 AC 03/14 PO 205 Metoprolol Tartrate 25 MG BID 03/14 2100 AC 03/15 PO 0842 Nicotine 14 MG DAILY 03/14 1848 AC 03/15 TOP 0841 Omeprazole 0 .STK-MED ONE 03/14 1629 DC PO Omeprazole 20 MG DAILY AC 03/14 1556 AC 03/15 PO 0547 Oxycodone HCl 10 MG Q6P PRN 03/14 1700 AC 03/15 PO 1158 Sodium Chloride 1,000 ML Q13H 03/14 1800 DC IV Ticagrelor 60 MG BID 03/15 1300 AC PO Ticagrelor 60 MG BID 03/15 0900 DC PO Assessment/Plan Assessment: The patient presents with a witnessed seizure and a transient Curt's paralysis. No obvious reason for this breakthrough seizure has been forthcoming. His Tegretol level is mid therapeutic. Plan: The patient is awaiting an EEG. I trust that he can be discharged thereafter. I have suggested office follow-up within several weeks time. I would not alter his anticonvulsant regimen at present as he has been so well controlled over decades. Should there be further spells, a gentle increase in his Tegretol dose or the addition of a second medication which surely be considered. Please feel free to call with any further questions.
[2018-03-15 14:09] VITALS: BP 110/70
--- NOTE | 2018-03-15 20:38 | Cons- Cardiology ---
General Information and HPI Consulting Request Date of Consult: 03/15/18 Requested By: Nunu Matute MD History of Present Illness: Mr. Estes is a 63 year old male with history of hypertension, dyslipidemia, tobacco abuse and coronary artery disease s/p MA. He has had multiple stents. He recently underwent a routine stress test and was not informed of any abnormality on this study. At his baseline, he is active and is free of any chest pain, pressure, tightness, shortness of breath, lightheadedness or palpitations. He now presents to [facility] with compaints of sudden loss of consciousness. He reports lying on his couch watching TV after engaging in some physical activity. He noted the TV picture flashing in front of him rapidly and thereafter does not recall anything until coming to the hospital. No incontinence was reported. According to his son, his father began to move his head side to side rapidly and his extremities becam stiff. The patient did feel very lethargic for a couple hours after the event. It should be noted that he had a prior seizure many years ago after being hit in the head by a baseball. There were no associated palptiations. Allergies/Medications Allergies: Coded Allergies: No Known Allergies (03/14/18) Home Med List: Aspirin (Aspirin*) 81 MG TAB.CHEW 1 TAB PO DAILY HEART HEALTH (Reported) Carbamazepine (Tegretol) 200 MG TABLET 1 TAB PO BID SEIZURES (Reported) Eszopiclone (Lunesta) 3 MG TABLET 1 TAB PO QPM SLEEP HELP (Reported) Hydrocodone/Acetaminophen (Hydrocodon-Acetaminophn 10-300) 10 MG-300 MG TABLET 1 TAB PO Q6 PAIN (Reported) Lisinopril 20 MG TABLET 1 TAB PO DAILY HEART (Reported) Lorazepam (Ativan) 0.5 MG TABLET 1 TAB PO BID ANXIETY (Reported) Metformin HCl 500 MG TABLET 1 TAB PO BID DIABETES (Reported) Metoprolol Tartrate (Lopressor) 50 MG TABLET 0.5 TAB PO BID HEART (Reported) Omeprazole 20 MG CAPSULE.DR 1 CAP PO DAILY GI (Reported) Rosuvastatin Calcium (Crestor) 40 MG TABLET 1 TAB PO DAILY CHOLESTEROL ( Reported) Ticagrelor (Brilinta) 60 MG TABLET 1 TAB PO BID BLOOD THINNER (Reported) Review of Systems Review of Systems: A review of systems is unremarkable. Past History Medical History Neurological: SEIZURES EENT: NONE Cardiovascular: hyperlipidemia, myocardial infarction, STENT Respiratory: NONE Gastrointestinal: INGUINAL HERNIA Hepatic: NONE Renal: NONE Musculoskeletal: "MULTIPLE HERNIATED DISKS Psychiatric: NONE Endocrine: diabetes Blood Disorders: NONE Cancer(s): NONE STRUCTURAL BIOLOGIST/Reproductive: NONE Surgical History Surgical History: non-contributory Psychosocial History Smoking Status: Current Everyday Smoker Exam & Diagnostic Data Vital Signs and I&O Vital Signs Date Time Temp Pulse Resp B/P B/P Pulse O2 O2 Flow FiO2 Mean Ox Delivery Rate 03/15 1409 97.6 56 18 110/70 96 Room Air 03/15 0842 66 122/72 03/15 0842 66 122/72 03/15 0722 97.8 66 20 122/72 96 Room Air 03/14 2209 97.5 52 20 110/70 97 Room Air Intake & Output 03/15 1600 03/15 0800 03/15 0000 03/14 1600 03/14 0800 03/14 0000 Intake Total 720 200 730 Output Total 0 Balance 720 200 730 Intake, IV 100 Intake, Oral 720 200 630 Output, Urine 0 Patient 192 lb 180 lb Weight Weight Reported by Patient Measurement Method Physical Exam: General: WD/WN male in NAD; alert and oriented x 3 HEENT: NC/AT, PERRL, EOMI Neck: no JVD, no bruit Heart: RRR w/o murmur Lungs: clear bilaterally Abdomen: soft, NT, +ve bowel sounds Extremities: no edema Assessment/Plan Assessment/Plan * This patient has no symptoms of myocardial ischemia or decompensated congestive heart failure. There is no indication that he has any cardiac dysrhythmia although monitoring the patient on telemetry for 48 hours is reasonable. He has a normal EF and normal atrial size without any obvious thrombus on his echocardiogram. I have a low suspicion of TIA or CVA. Okay for discharge from a cardiac standpoint. Consult Acknowledgment - Thank you for your consult request.
[2018-03-15 21:38] VITALS: BP 126/70
[2018-03-16 06:19] VITALS: BP 126/78
--- NOTE | 2018-03-16 07:30 | PN- Housestaff ---
Subjective Follow-up For: Seizure disorder Subjective: Afebrile overnight. Patient is seen and examined in bed this morning. Patient states he had no episodes of seizures last night and has not had any since his presentation to the hospital. Patient states his occipital headache has improved since yesterday and feels better. Patient otherwise denies any n/v, chest pain, palpitations, and shortness of breath. Review of Systems Constitutional: Reports: see HPI. Objective Last 24 Hrs of Vital Signs/I&O Vital Signs Date Time Temp Pulse Resp B/P B/P Pulse O2 O2 Flow FiO2 Mean Ox Delivery Rate 03/16 0619 97.7 63 18 126/78 96 / 2138 97.7 52 18 126/70 96 Room Air 03/15 1409 97.6 56 18 110/70 96 Room Air 03/15 0842 66 122/72 03/15 0842 66 122/72 Intake & Output 03/16 0800 03/16 0000 03/15 1600 Intake Total 100 150 720 Output Total Balance 100 150 720 Intake, Oral 100 150 720 Patient 186 lb Weight Physical Exam General Appearance: Alert, Oriented X3, Cooperative, No Acute Distress Skin: No Rashes, No Breakdown HEENT: Atraumatic Neck: Supple, No JVD Cardiovascular: Regular Rate, Normal S1, Normal S2 Lungs: Clear to Auscultation Neurological: Normal Speech Extremities: No Edema, Normal Pulses Assessment/Plan Assessment: ECHO - Normal left ventricular size with mild left ventricular hypertrophy. Normal systolic function with no obvious regional wall motion abnormalities. Normal left ventricular diastolic filling pattern for age. The ejection fraction is visually estimated at 65%. Carotid US - 1. RIGHT: Minimal, nonhemodynamically significant stenosis of the proximal right internal carotid artery corresponding to a 0-49% stenosis by velocity criteria. 2. LEFT: Minimal, nonhemodynamically significant stenosis of the proximal left internal carotid artery corresponding to a 0-49% stenosis by velocity criteria. 3. No evidence for hemodynamically significant stenosis in the external carotid arteries. Head CT - No acute intracranial pathology. Scattered inflammatory disease within the paranasal sinuses, partially visualized. Small nodularities within the nasal cavity suggesting polyps, which can be correlated with direct inspection. 63-year-old gentleman with a past medical history of chronic back pain, coronary artery disease status post stent placed 2 years ago, hypertension, hyperlipidemia, seizure, GERD who presented to the ED due to one episode of witnessed seizures at home by his son. Etiology in this case with a presentation of witnessed seizure in a patient with history of seizure disorder currently taking Carbamazepine twice daily is likely related to a recurrent of patient's seizure disorder. Differential diagnosis also includes TIA/Stroke, convulsive syncope, cardiac arrhythmia, and narcolepsy. Problem List: -Generalized Tonic-clonic seizure -Hx. of Diabetes mellitus -Hx. of Coronary artery disease #Generalized Tonic-clonic seizure, witnessed by family and hx. 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 #Diabetes -Sliding scale insulin #Coronary artery disease -Patient is on aspirin and Brilinta -We will confirm with this bronze plater regarding continuing Brilinta; called advanced cardiology office and confirmed patient has had multiple stents, 10 total, over the past several years the last being in 2014; will continue Brilinta currrently as of now Diet - Consistent carbohydrate diet DVT PPx. - Lovenox CODE STATUS - full code Problem List: 1. Seizure disorder Pain Ratin Pain Location: na Pain Goal: Remain pain free Pain Plan: prn meds Tomorrow's Labs & Rationales: routine
[2018-03-16 07:50] VITALS: BP 148/80
[2018-03-16 07:54] VITALS: BP 148/80
--- NOTE | 2018-03-16 13:49 | ELECTROENCEPHALOGRAM REPORT ---
Electroencephalogram Report Electroencephalogram Results Date of service: 03/15/18 Attending MD: Nunu Matute MD Energy Trader: Johanny Liang EEG Number: [id number] Test Utilizes: 10-20 system, 21 lead 18 channel digital recording Pertinent Hx/Physical/Neuro Findings/Clin Diagnosis: Seizure Inpatient Medications: Current Medications Sig/Bandar Start time Last Medication Dose Route Stop Time Status Admin Acetaminophen 650 MG Q6P PRN 03/14 1700 DCD 03/15 PO 2032 Acetaminophen 1,000 MG Q6P PRN 03/14 1700 DCD 03/14 IV 1955 Acetaminophen/ 1 TAB Q4P PRN 03/15 0845 DCD 03/15 Butalbital/Caffeine PO 203 Aspirin 81 MG DAILY 03/14 1554 DCD 03/16 PO 0753 Atorvastatin Calcium 40 MG 1700 03/14 1700 DCD 03/15 PO 1730 Carbamazepine 200 MG BID 03/14 2100 DCD 03/16 PO 0754 Insulin Aspart 0 TIDAC 03/15 0800 DCD SC Lisinopril 20 MG DAILY 03/15 0900 DCD 03/16 PO 0754 Lorazepam 0.5 MG BID 03/14 2100 DCD 03/16 PO 03/21 2059 0759 Melatonin 5 MG AT BEDTIME NEED.. 03/15 1400 DCD PO Melatonin 5 MG AT BEDTIME 03/14 2100 DCD 03/15 PO 2032 Metoprolol Tartrate 25 MG BID 03/14 2100 DCD 03/16 PO 0753 Nicotine 14 MG DAILY 03/14 1848 DCD 03/15 TOP 0841 Omeprazole 20 MG DAILY AC 03/14 1556 DCD 03/16 PO 0610 Oxycodone HCl 10 MG Q6P PRN 03/14 1700 DCD 03/16 PO 0610 Ticagrelor 60 MG BID 03/15 1300 DCD 03/16 PO 0755 Interpretation: The predominant posterior background rhythm in the waking state consists of medium voltage 8-9 CPS activity which attenuates to eye opening. Lower voltage faster frequencies was seen over the anterior head regions bilaterally. Generalized slowing of the background is seen during periods of drowsiness. No focal, paroxysmal or lateralizing features were appreciated. Hyperventilation and photic stimulation induced no abnormalities. Impression: Normal EEG. No focal or paroxysmal features were noted.
== END 2018-03-16 10:31 ==
LOC: ERH 12:36 → ERHI 14:32 → 1NO 14:32 → ENRESERV 15:53 → ENTRNSPT 16:24 → EDTRNSPTSTS 16:57 → 1NO 17:06 → CMPTRNSPT 17:11 → ENPENDDIS 03-16 10:03 → ENTRNSPT 03-16 10:15 → EDTRNSPT 03-16 10:24 → EDTRNSPTSTS 03-16 10:24 → 1NO 03-16 10:31 → CMPTRNSPT 03-16 11:12
PROVIDERS: Student in an Organized Health Care Education/Training Program
DX: G40.89 Other seizures (principal); I25.10 Atherosclerotic heart disease of native coronary artery without angina pectoris; E78.5 Hyperlipidemia, unspecified; I25.2 Old myocardial infarction; Z95.5 Presence of coronary angioplasty implant and graft; E11.9 Type 2 diabetes mellitus without complications; Z79.84 Long term (current) use of oral hypoglycemic drugs; Z79.01 Long term (current) use of anticoagulants; M54.9 Dorsalgia, unspecified; F17.200 Nicotine dependence, unspecified, uncomplicated; I10 Essential (primary) hypertension; K21.9 Gastro-esophageal reflux disease without esophagitis; Z79.82 Long term (current) use of aspirin
CPT/HCPCS: 36592; 82436; 93005; 93010; 93306; 95816; 96374; G0378; J0131; J3490